=== PATIENT | female | born 1945 | race African-American/Black ===

== ENCOUNTER 2019-06-03 11:39 | Inpatient (IN) | payer MEDICARE, MEDICAID ==
[~2019-06-03] VITALS: Ht 172.7 cm; Wt 105.2 kg
[2019-06-03] MEDS ORDERED: SODIUM CHLORIDE 0.9% 1000ML BAG (SEPSIS BOLUS) IV ONE (21:30)
[2019-06-03] MEDS ORDERED: PIPERACILLIN/TAZ 3.375G PREMIX 50 ML IV ONE (21:30)
[2019-06-03] MEDS ORDERED: VANCOMYCIN 1 G PREMIX 200 ML IV ONE (21:30)
[2019-06-03] MEDS ORDERED: SODIUM CHLORIDE 0.9% IV ONE (22:00)
[2019-06-03] MEDS ORDERED: DILTIAZEM HCL 5MG/ML 5ML VIAL IV ONE (22:00)
[2019-06-03] MEDS ORDERED: CLINDAMYCIN 600 MG in DEXTROSE 5% WATER 50 ML IV ONE (22:30)
[2019-06-03 23:47] LABS: BASOPHILS % 0.4 % (0.0-2.0); EOSINOPHILS % 0.5 % (0.0-5.0); HEMATOCRIT. 31.9 % (36.0-48.0); HEMOGLOBIN. 10.2 g/dL (12.0-16.0); LYMPHOCYTES % 7.1 % (20.0-50.0); MEAN CORPUSCULAR HEMOGLOBIN 26.5 pg (28.0-32.0); MEAN CORPUSCULAR VOLUME 82.9 fL (81.0-99.0); MEAN PLATELET VOLUME 9.2 fl (7.4-10.4); MONOCYTES % 11.3 % (2.0-8.0); NEUTROPHILS % 80.7 % (40.0-76.0); PLATELET 292 x1000/uL (130-400); RED BLOOD CELL COUNT 3.85 mill/uL (4.2-5.4); RED CELL DISTRIBUTION WIDTH 16.4 % (11.6-14.6)
[2019-06-03 23:51] LABS: CHLORIDE 107 mEq/L (98-107)
[2019-06-03 23:52] LABS: INR 1.2; PROTHROMBIN TIME 12.1 sec (9.6-11.0)
[2019-06-04] MEDS ORDERED: HYDROMORPHONE HCL/PF 2MG/ML CPJ IV PRN (00:15)
[2019-06-04] MEDS ORDERED: ACETAMINOPHEN 325MG TABLET PO PRN (00:15)
[2019-06-04] MEDS ORDERED: ENOXAPARIN 40MG/0.4ML SYR SUBCUT SCH (00:15)
[2019-06-04] MEDS ORDERED: HYDROCODONE/ACETAMINOPHEN 5/325MG TABLET PO PRN (00:15)
[2019-06-04] MEDS ORDERED: DOCUSATE SODIUM 100MG CAPSULE PO PRN (00:15)
[2019-06-04] MEDS ORDERED: ONDANSETRON HCL 4MG/2ML INJ IV PRN (00:15)
[2019-06-04] MEDS ORDERED: CLONIDINE 0.1MG TABLET PO PRN (00:15)
[2019-06-04 02:13] VITALS: BP 147/76
[2019-06-04] MEDS ORDERED: IOHEXOL-300 100 ML BOTTLE ONE (03:03)
[2019-06-04] MEDS ORDERED: ATOR10TA PO (03:28)
[2019-06-04] MEDS ORDERED: SITA1TBM7 PO (03:28)
[2019-06-04] MEDS ORDERED: ASPI-1497 PO (03:28)
[2019-06-04] MEDS ORDERED: AMLO5TAB4 PO (03:28)
[2019-06-04] MEDS ORDERED: PIOG15TA66 PO (03:29)
[2019-06-04] MEDS ORDERED: LISI40TA4 PO (03:29)
[2019-06-04] MEDS ORDERED: DICL75TA5 PO (03:29)
[2019-06-04] MEDS: DEXT 5%/0.45% NACL 1000ML 1,000 ML IV SCH ×2 (04:22→15:52)
[2019-06-04] MEDS: PIPERACILLIN/TAZOBACTAM 3.375 G in DEXT 5% WATER 100 ML IV SCH ×3 (05:39→21:27)
[2019-06-04 08:00] VITALS: BP 135/78
[2019-06-04] MEDS: METOPROLOL TARTRATE 25MG TABLET PO SCH ×2 (09:39→21:27)
[2019-06-04] MEDS: ENOXAPARIN 30MG/0.3ML SYR SUBCUT SCH ×2 (09:40→21:27)
[2019-06-04 12:00] VITALS: BP 122/68
[2019-06-04 16:00] VITALS: BP_SYST 122; BP_SYST 124; BP_DIAS 62; BP_DIAS 67
[2019-06-04] MEDS: VANCOMYCIN 1 G PREMIX 200 ML IV SCH (18:46)
[2019-06-04 20:00] VITALS: BP 124/78
[2019-06-05] VITALS: BP_SYST 104; BP_SYST 155; BP_DIAS 108; BP_DIAS 59
[2019-06-05] MEDS ORDERED: VANCOMYCIN 1 G PREMIX 200 ML IV SCH (01:00)
[2019-06-05 04:00] VITALS: BP 129/66
[2019-06-05] MEDS: PIPERACILLIN/TAZOBACTAM 3.375 G in DEXT 5% WATER 100 ML IV SCH ×3 (05:40→22:06)
[2019-06-05] MEDS: DEXT 5%/0.45% NACL 1000ML 1,000 ML IV SCH ×2 (05:40→19:49)
[2019-06-05 07:06] LABS: BASOPHILS % 0.3 % (0.0-2.0); EOSINOPHILS % 0.8 % (0.0-5.0); HEMATOCRIT. 28.4 % (36.0-48.0); HEMOGLOBIN. 9.3 g/dL (12.0-16.0); LYMPHOCYTES % 10.1 % (20.0-50.0); MEAN CORPUSCULAR VOLUME 82.3 fL (81.0-99.0); MEAN PLATELET VOLUME 9.5 fl (7.4-10.4); MONOCYTES % 11.7 % (2.0-8.0); NEUTROPHILS % 77.1 % (40.0-76.0); PLATELET 266 x1000/uL (130-400); RED BLOOD CELL COUNT 3.46 mill/uL (4.2-5.4); RED CELL DISTRIBUTION WIDTH 15.9 % (11.6-14.6)
[2019-06-05 08:00] VITALS: BP 126/60
[2019-06-05 08:01] LABS: CHLORIDE 105 mEq/L (98-107)
[2019-06-05] MEDS: METOPROLOL TARTRATE 25MG TABLET PO SCH ×2 (09:39→21:23)
[2019-06-05] MEDS: ENOXAPARIN 30MG/0.3ML SYR SUBCUT SCH ×2 (09:40→21:23)
[2019-06-05 12:00] VITALS: BP 138/86
[2019-06-05 16:00] VITALS: BP 155/90
[2019-06-05] MEDS: VANCOMYCIN 1 G PREMIX 200 ML IV SCH (19:39)
[2019-06-05 20:00] VITALS: BP 120/70
[2019-06-06 00:19] VITALS: BP 110/60
[2019-06-06 04:00] VITALS: BP 115/64
[2019-06-06] MEDS: PIPERACILLIN/TAZOBACTAM 3.375 G in DEXT 5% WATER 100 ML IV SCH (06:03)
[2019-06-06 06:25] LABS: BASOPHILS % 0.4 % (0.0-2.0); EOSINOPHILS % 1.3 % (0.0-5.0); HEMATOCRIT. 27.9 % (36.0-48.0); HEMOGLOBIN. 9.1 g/dL (12.0-16.0); LYMPHOCYTES % 9.8 % (20.0-50.0); MEAN CORPUSCULAR HEMOGLOBIN 26.8 pg (28.0-32.0); MEAN CORPUSCULAR VOLUME 81.9 fL (81.0-99.0); MEAN PLATELET VOLUME 9.3 fl (7.4-10.4); MONOCYTES % 11.5 % (2.0-8.0); PLATELET 251 x1000/uL (130-400); RED CELL DISTRIBUTION WIDTH 16.3 % (11.6-14.6)
[2019-06-06 06:38] LABS: CHLORIDE 105 mEq/L (98-107)
[2019-06-06 08:00] VITALS: BP 121/67
[2019-06-06] MEDS: ENOXAPARIN 30MG/0.3ML SYR SUBCUT SCH (10:37)
[2019-06-06] MEDS: METOPROLOL TARTRATE 25MG TABLET PO SCH (10:38)
[2019-06-06] MEDS: DEXT 5%/0.45% NACL 1000ML 1,000 ML IV SCH (10:38)
[2019-06-06] MEDS ORDERED: TRAM50TA94 MT (12:10)
[2019-06-06] MEDS ORDERED: SULF1TAB47 MT ×2 (12:10→12:15)
[2019-06-06] MEDS ORDERED: MAGNESIUM 2 G PREMIX 50 ML IV NR (12:30)
[2019-06-06 14:34] VITALS: BP 126/71
== END 2019-06-06 17:25 | disposition home or self-care (01) | DRG 394 ==
LOC: ER 11:39 → 7WST 21:44 → EDBEDREQ 21:51 → EDBEDREQTM 21:51 → EDBEDREQSVC 22:03 → EDBEDREQ 22:03 → EDBEDREQTM 22:03 → ENRESERV 22:55
PROVIDERS: ADMIT Hospitalist; ATTEND Hospitalist
DX: K61.2 Anorectal abscess (principal); E44.0 Moderate protein-calorie malnutrition; E11.9 Type 2 diabetes mellitus without complications; E66.01 Morbid (severe) obesity due to excess calories; I10 Essential (primary) hypertension; I25.10 Atherosclerotic heart disease of native coronary artery without angina pectoris; Z85.038 Personal history of other malignant neoplasm of large intestine; Z90.710 Acquired absence of both cervix and uterus; Z79.899 Other long term (current) drug therapy; Z88.8 Allergy status to other drugs, medicaments and biological substances
CPT/HCPCS: 36415; 71045; 74177; 80053; 82962; 83605; 83735; 83880; 84145; 84484; 85025; 85651; 86140; 87070; 93005; 93970; 96365; 97116; 97162; 99285; C1893; J1650; J2543; J3370; J3475; J3490; J7030; J7060; Q9967

== ENCOUNTER 2019-09-05 13:55 | Inpatient (IN) | payer MEDICARE, MEDICAID ==
[~2019-09-05] VITALS: Ht 165.1 cm; Wt 100.8 kg
[~2019-09-05 13:55] MED LIST: AMLO5TAB4 PO; ASPI-1497 PO; ATOR10TA PO; DICL75TA5 PO; LISI40TA4 PO; PIOG15TA66 PO; SITA1TBM7 PO; SULF1TAB47 MT; TRAM50TA94 MT
[2019-09-05] MEDS ORDERED: SODIUM CHLORIDE 0.9% 1000ML BAG (SEPSIS BOLUS) IV ONE (14:15)
[2019-09-05 15:40] LABS: HEMATOCRIT. 26.4 % (36.0-48.0); HEMOGLOBIN. 7.9 g/dL (12.0-16.0); MEAN CORPUSCULAR HEMOGLOBIN 24.5 pg (28.0-32.0); MEAN CORPUSCULAR VOLUME 81.5 fL (81.0-99.0); MEAN PLATELET VOLUME 9.2 fl (7.4-10.4); PLATELET 298 x1000/uL (130-400); RED BLOOD CELL COUNT 3.24 mill/uL (4.2-5.4); RED CELL DISTRIBUTION WIDTH 19.8 % (11.6-14.6)
[2019-09-05] MEDS ORDERED: ASPIRIN 300MG SUPP PR ONE (15:45)
[2019-09-05 15:50] LABS: INR 1.2; PARTIAL THROMBOPLASTIN TIME 25.9 sec (23.4-31.0); PROTHROMBIN TIME 13.4 sec (9.6-11.0)
[2019-09-05 15:52] LABS: CHLORIDE 114 mEq/L (98-107)
[2019-09-05 15:59] LABS: PLATELET ESTIMATE NORMAL
[2019-09-05] MEDS ORDERED: PIPERACILLIN/TAZ 3.375G PREMIX 50 ML IV ONE (16:15)
[2019-09-05] MEDS ORDERED: VANCOMYCIN 1 G PREMIX 200 ML IV ONE (16:15)
[2019-09-05] MEDS ORDERED: DEXTROSE 50% WATER 50ML SYRINGE IV ONE (16:15)
[2019-09-05] MEDS ORDERED: IOHEXOL-350 100 ML BOTTLE ONE (16:56)
[2019-09-05] MEDS ORDERED: DILTIAZEM HCL 5MG/ML 5ML VIAL IV ONE (17:45)
[2019-09-05] MEDS ORDERED: DEXTROSE 5% WATER 1,000 ML IV ONE (17:56)
[2019-09-05 19:19] LABS: CLARITY URINE TURBID (CLEAR); COLOR URINE DARK YELLOW (YELLOW); KETONES URINE NEGATIVE (NEGATIVE); LEUKOCYTE ESTERASE URINE 3+ (NEGATIVE); NITRITE URINE NEGATIVE (NEGATIVE); OCCULT BLOOD URINE 1+ (NEGATIVE); PROTEIN URINE 3+ (NEGATIVE); SPECIFIC GRAVITY URINE 1.016 (1.005-1.030)
[2019-09-05 22:11] VITALS: BP 93/60
[2019-09-06] VITALS: BP_SYST 93; BP_SYST 96; BP_DIAS 60; BP_DIAS 62
[2019-09-06 04:00] VITALS: BP_SYST 121; BP_SYST 89; BP_DIAS 49; BP_DIAS 58
[2019-09-06] MEDS ORDERED: DEXTROSE 50% WATER 50ML SYRINGE IV PRN (05:30)
[2019-09-06] MEDS ORDERED: ACETAMINOPHEN 650MG SUPP PR PRN (05:30)
[2019-09-06] MEDS: BLOOD SUGAR DIAGNOSTIC STRIP TEST SCH ×4 (07:17→21:21)
[2019-09-06] MEDS: INSULIN LISPRO 100 UNITS/ML SUBCUT SCH ×4 (07:23→21:00)
[2019-09-06 08:00] VITALS: BP 70/47
[2019-09-06] MEDS ORDERED: ZINC50TA69 PO (08:34)
[2019-09-06] MEDS ORDERED: ASCO500C18 MT (08:35)
[2019-09-06] MEDS ORDERED: LIDO700A30 TP (08:35)
[2019-09-06] MEDS ORDERED: ONDA4TAB5 MT (08:35)
[2019-09-06] MEDS ORDERED: ATOR20TA65 MT (08:35)
[2019-09-06] MEDS: PIPERACILLIN/TAZOBACTAM 3.375 G in DEXT 5% WATER 100 ML IV SCH ×3 (09:51→21:21)
[2019-09-06] MEDS: SODIUM CHLORIDE 0.45% 1,000 ML IV SCH (09:52)
[2019-09-06] MEDS ORDERED: VANCOMYCIN 1 G PREMIX 200 ML IV SCH (10:00)
[2019-09-06 11:59] LABS: HEMATOCRIT. 23.6 % (36.0-48.0); HEMOGLOBIN. 7.1 g/dL (12.0-16.0); MEAN CORPUSCULAR HEMOGLOBIN 24.2 pg (28.0-32.0); MEAN PLATELET VOLUME 9.2 fl (7.4-10.4); PLATELET 221 x1000/uL (130-400); RED BLOOD CELL COUNT 2.92 mill/uL (4.2-5.4); RED CELL DISTRIBUTION WIDTH 20.2 % (11.6-14.6)
[2019-09-06 12:00] VITALS: BP 107/78
[2019-09-06 12:05] LABS: CHLORIDE 110 mEq/L (98-107)
[2019-09-06] MEDS: MIDODRINE HCL 5MG TABLET PO SCH ×2 (13:30→17:00)
[2019-09-06] MEDS ORDERED: PIPERACILLIN/TAZOBACTAM 3.375 G/VIAL IV SCH (14:00)
[2019-09-06] MEDS ORDERED: SODIUM POLYSTYRENE SULFONATE 15 G/60 ML BOT PO SCH (14:00)
[2019-09-06 14:17] LABS: PLATELET ESTIMATE NORMAL
[2019-09-06] MEDS: ZINC SULFATE 220 MG ( 50 ) CAPSULE PO SCH (14:30)
[2019-09-06] MEDS: ASCORBIC ACID 500 MG TABLET PO SCH (14:30)
[2019-09-06 16:00] VITALS: BP 106/56
[2019-09-06] MEDS ORDERED: LORAZEPAM 2MG/ML CPJ IV PRN (17:00)
[2019-09-06 20:00] VITALS: BP 102/74
[2019-09-07 00:07] VITALS: BP 113/72
[2019-09-07 04:00] VITALS: BP 159/102
[2019-09-07] MEDS: SODIUM CHLORIDE 0.45% 1,000 ML IV SCH (05:00)
[2019-09-07] MEDS: PIPERACILLIN/TAZOBACTAM 3.375 G in DEXT 5% WATER 100 ML IV SCH ×3 (05:30→14:43)
[2019-09-07] MEDS ORDERED: VANCOMYCIN 1 G PREMIX 200 ML IV SCH (06:00)
[2019-09-07] MEDS: BLOOD SUGAR DIAGNOSTIC STRIP TEST SCH ×3 (07:00→17:40)
[2019-09-07 08:00] VITALS: BP 118/67
[2019-09-07] MEDS: ZINC SULFATE 220 MG ( 50 ) CAPSULE PO SCH (10:19)
[2019-09-07] MEDS: ASCORBIC ACID 500 MG TABLET PO SCH (10:19)
[2019-09-07] MEDS: RISPERIDONE 0.5MG TABLET PO SCH (10:19)
[2019-09-07] MEDS: MIDODRINE HCL 5MG TABLET PO SCH ×3 (10:20→18:35)
[2019-09-07] MEDS: INSULIN LISPRO 100 UNITS/ML SUBCUT SCH ×4 (10:22→21:55)
[2019-09-07 12:00] VITALS: BP 118/69
[2019-09-07 16:00] VITALS: BP 116/72
[2019-09-07 17:12] LABS: CHLORIDE 111 mEq/L (98-107)
[2019-09-07] MEDS: LEVOFLOXACIN 500MG PREMIX 100 ML IV SCH (18:34)
[2019-09-07 20:00] VITALS: BP 122/67
[2019-09-08] VITALS (7 sets, daily range): BP systolic 99–134; BP diastolic 28–98
[2019-09-08] MEDS: BLOOD SUGAR DIAGNOSTIC STRIP TEST SCH ×5 (01:03→21:00)
[2019-09-08] MEDS: SODIUM CHLORIDE 0.45% 1,000 ML IV SCH ×2 (01:06→21:46)
[2019-09-08] MEDS: ZINC SULFATE 220 MG ( 50 ) CAPSULE PO SCH (09:27)
[2019-09-08] MEDS: MIDODRINE HCL 5MG TABLET PO SCH ×2 (09:27→21:49)
[2019-09-08] MEDS: RISPERIDONE 0.5MG TABLET PO SCH (09:27)
[2019-09-08] MEDS: ASCORBIC ACID 500 MG TABLET PO SCH (09:27)
[2019-09-08] MEDS: INSULIN LISPRO 100 UNITS/ML SUBCUT SCH ×3 (09:30→21:47)
[2019-09-08] MEDS ORDERED: LORAZEPAM 2MG/ML CPJ IV SCH (10:00)
[2019-09-08 12:36] LABS: HEMATOCRIT. 22.3 % (36.0-48.0); MEAN CORPUSCULAR HEMOGLOBIN 24.7 pg (28.0-32.0); MEAN CORPUSCULAR VOLUME 79.2 fL (81.0-99.0); MEAN PLATELET VOLUME 9.2 fl (7.4-10.4); PLATELET 195 x1000/uL (130-400); RED BLOOD CELL COUNT 2.82 mill/uL (4.2-5.4); RED CELL DISTRIBUTION WIDTH 19.7 % (11.6-14.6)
[2019-09-08] MEDS ORDERED: POTASSIUM CHLORIDE 20MEQ TABLET SR PO SCH (12:45)
[2019-09-08 12:50] LABS: CHLORIDE 113 mEq/L (98-107)
[2019-09-08 13:33] LABS: PLATELET ESTIMATE NORMAL
[2019-09-08] MEDS ORDERED: POTASSIUM CHLORIDE 20MEQ/PACKET NG NR (20:15)
[2019-09-08] MEDS: MORPHINE SULFATE 2 MG/ML CPJ (NOT FOR IM USE) IV PRN (20:38)
[2019-09-08] MEDS: DIGOXIN 125MCG TABLET PO SCH (21:45)
[2019-09-08] MEDS: LEVOFLOXACIN 500MG PREMIX 100 ML IV SCH (21:45)
[2019-09-08] MEDS: INSULIN GLARGINE UD 100 UNITS/ML SYR SUBCUT SCH (21:47)
[2019-09-08] MEDS: LORAZEPAM 2MG/ML CPJ IV PRN (22:07)
[2019-09-09] VITALS (17 sets, daily range): BP systolic 112–155; BP diastolic 53–98
[2019-09-09] MEDS: BLOOD SUGAR DIAGNOSTIC STRIP TEST SCH ×4 (05:58→20:26)
[2019-09-09] MEDS: INSULIN LISPRO 100 UNITS/ML SUBCUT SCH ×4 (07:20→21:04)
[2019-09-09] MEDS: ASCORBIC ACID 500 MG TABLET PO SCH (08:49)
[2019-09-09] MEDS: MIDODRINE HCL 5MG TABLET PO SCH (08:49)
[2019-09-09] MEDS: ZINC SULFATE 220 MG ( 50 ) CAPSULE PO SCH (08:49)
[2019-09-09] MEDS: RISPERIDONE 0.5MG TABLET PO SCH (08:49)
[2019-09-09] MEDS: INSULIN GLARGINE UD 100 UNITS/ML SYR SUBCUT SCH ×2 (10:33→22:14)
[2019-09-09] MEDS ORDERED: LIDOCAINE HCL 1% 20ML VIAL (Pyxis) INJ ONE (12:27)
[2019-09-09] MEDS ORDERED: SODIUM BICARBONATE 4% (2.4MEQ) 5ML VIAL IV ONE (12:27)
[2019-09-09 15:09] LABS: BASOPHILS % 0.4 % (0.0-2.0); EOSINOPHILS % 0.2 % (0.0-5.0); HEMATOCRIT. 24.5 % (36.0-48.0); HEMOGLOBIN. 7.8 g/dL (12.0-16.0); LYMPHOCYTES % 8.7 % (20.0-50.0); MEAN CORPUSCULAR HEMOGLOBIN 25.5 pg (28.0-32.0); MEAN CORPUSCULAR VOLUME 79.6 fL (81.0-99.0); MEAN PLATELET VOLUME 9.1 fl (7.4-10.4); MONOCYTES % 5.6 % (2.0-8.0); NEUTROPHILS % 85.1 % (40.0-76.0); PLATELET 181 x1000/uL (130-400); RED BLOOD CELL COUNT 3.07 mill/uL (4.2-5.4); RED CELL DISTRIBUTION WIDTH 19.2 % (11.6-14.6)
[2019-09-09 15:14] LABS: CHLORIDE 115 mEq/L (98-107)
[2019-09-09 15:17] LABS: INR 1.2; PROTHROMBIN TIME 12.8 sec (9.6-11.0)
[2019-09-09 15:21] LABS: TOTAL IRON BINDING CAPACITY 113 ug/dL (250-450)
[2019-09-09 15:42] LABS: FOLIC ACID (FOLATE) SERUM 3.4 ng/mL (>5.38)
[2019-09-09] MEDS ORDERED: POTASSIUM CHLORIDE 20MEQ/PACKET NG NR (16:15)
[2019-09-09] MEDS: DIGOXIN 125MCG TABLET PO SCH (17:17)
[2019-09-09] MEDS: LEVOFLOXACIN 500MG PREMIX 100 ML IV SCH (17:17)
[2019-09-09] MEDS: SODIUM CHLORIDE 0.45% 1,000 ML IV SCH (17:17)
[2019-09-09] MEDS: MORPHINE SULFATE 2 MG/ML CPJ (NOT FOR IM USE) IV PRN (21:07)
[2019-09-10] VITALS (16 sets, daily range): BP systolic 114–150; BP diastolic 52–96
[2019-09-10] MEDS: MORPHINE SULFATE 2 MG/ML CPJ (NOT FOR IM USE) IV PRN ×2 (02:00→14:13)
[2019-09-10] MEDS: BLOOD SUGAR DIAGNOSTIC STRIP TEST SCH ×4 (07:14→21:48)
[2019-09-10] MEDS: INSULIN LISPRO 100 UNITS/ML SUBCUT SCH ×4 (07:20→21:52)
[2019-09-10 07:24] LABS: CHLORIDE 116 mEq/L (98-107)
[2019-09-10] MEDS: RISPERIDONE 0.5MG TABLET PO SCH ×2 (08:59→17:40)
[2019-09-10] MEDS: METOPROLOL TARTRATE 25MG TABLET NG SCH ×2 (09:00→21:55)
[2019-09-10] MEDS: SODIUM HYPOCHLORITE 0.125% 473ML SOLUTION TOP SCH (09:00)
[2019-09-10] MEDS: INSULIN GLARGINE UD 100 UNITS/ML SYR SUBCUT SCH ×2 (09:08→22:00)
[2019-09-10] MEDS ORDERED: DIGOXIN 500MCG/2ML AMP IV NR (10:30)
[2019-09-10] MEDS: SODIUM CHL 0.45% + KCL 20MEQ/L 1,000 ML IV SCH (14:12)
[2019-09-10 15:41] LABS: EOSINOPHILS % 0.3 % (0.0-5.0); HEMATOCRIT. 25.5 % (36.0-48.0); HEMOGLOBIN. 8.1 g/dL (12.0-16.0); LYMPHOCYTES % 7.8 % (20.0-50.0); MEAN CORPUSCULAR HEMOGLOBIN 25.7 pg (28.0-32.0); MEAN PLATELET VOLUME 9.2 fl (7.4-10.4); MONOCYTES % 4.9 % (2.0-8.0); PLATELET 191 x1000/uL (130-400); RED BLOOD CELL COUNT 3.15 mill/uL (4.2-5.4); RED CELL DISTRIBUTION WIDTH 19.4 % (11.6-14.6)
[2019-09-10] MEDS: LORAZEPAM 2MG/ML CPJ IV PRN (15:44)
[2019-09-10] MEDS ORDERED: DIGOXIN 500MCG/2ML AMP IV SCH (16:30)
[2019-09-10] MEDS: DIGOXIN 125MCG TABLET PO SCH (17:44)
[2019-09-10] MEDS: LEVOFLOXACIN 500MG PREMIX 100 ML IV SCH (20:26)
[2019-09-11] VITALS (11 sets, daily range): BP systolic 105–153; BP diastolic 48–108
[2019-09-11] MEDS ORDERED: LACTULOSE 20G/30ML UDC PR SCH (02:00)
[2019-09-11] MEDS: SODIUM CHL 0.45% + KCL 20MEQ/L 1,000 ML IV SCH ×3 (02:36→20:55)
[2019-09-11 05:50] LABS: CHLORIDE 116 mEq/L (98-107)
[2019-09-11] MEDS: BLOOD SUGAR DIAGNOSTIC STRIP TEST SCH ×4 (06:50→20:52)
[2019-09-11] MEDS ORDERED: BACITRACIN 50,000 UNITS/VIAL ONE (06:53)
[2019-09-11] MEDS ORDERED: BUPIVACAINE HCL/PF 0.5% (5MG/ML) 10ML ONE (06:53)
[2019-09-11] MEDS ORDERED: LIDOCAINE HCL 1% 20ML VIAL (Pyxis) INJ ONE (06:53)
[2019-09-11] MEDS ORDERED: NORMAL SALINE 0.9% 10 ML SYR ONE (06:54)
[2019-09-11] MEDS: INSULIN LISPRO 100 UNITS/ML SUBCUT SCH ×4 (07:20→20:52)
[2019-09-11] MEDS ORDERED: FENTANYL CITRATE/PF 50MCG/ML 2ML VIAL ONE (07:33)
[2019-09-11] MEDS ORDERED: ROCURONIUM BROMIDE 10MG/ML VIAL 5ML IV ONE (07:33)
[2019-09-11] MEDS ORDERED: MIDAZOLAM HCL 2 MG/2 ML VIAL ONE (07:34)
[2019-09-11] MEDS ORDERED: PROPOFOL 200MG/20ML VIAL IV ONE (07:34)
[2019-09-11] MEDS ORDERED: NEOSTIGMINE METHYLSULFATE 1MG/ML 10 ML VIAL ONE (07:34)
[2019-09-11] MEDS ORDERED: GLYCOPYRROLATE 0.2 MG/ML 2ML VIAL ONE (07:34)
[2019-09-11] MEDS ORDERED: DEXAMETHASONE 4MG/ML 1ML VIAL ONE (07:38)
[2019-09-11] MEDS ORDERED: ONDANSETRON HCL 4MG/2ML INJ ONE (07:38)
[2019-09-11] MEDS ORDERED: HYDROMORPHONE HCL/PF 2MG/ML CPJ IV PRN (08:30)
[2019-09-11] MEDS ORDERED: LABETALOL 5MG/ML SYR 20 MG/4 ML SYRINGE IV PRN (08:30)
[2019-09-11] MEDS ORDERED: ONDANSETRON HCL 4MG/2ML INJ IV PRN (08:30)
[2019-09-11] MEDS ORDERED: MEPERIDINE HCL/PF 25MG/ML CPJ IV PRN (08:30)
[2019-09-11] MEDS: SODIUM HYPOCHLORITE 0.125% 473ML SOLUTION TOP SCH (09:00)
[2019-09-11] MEDS: RISPERIDONE 0.5MG TABLET PO SCH ×2 (11:06→17:21)
[2019-09-11] MEDS: MORPHINE SULFATE 2 MG/ML CPJ (NOT FOR IM USE) IV PRN ×2 (11:06→16:40)
[2019-09-11] MEDS: INSULIN GLARGINE UD 100 UNITS/ML SYR SUBCUT SCH ×2 (11:25→20:57)
[2019-09-11] MEDS: LORAZEPAM 2MG/ML CPJ IV PRN ×2 (12:28→12:34)
[2019-09-11] MEDS: METOPROLOL TARTRATE 25MG TABLET NG SCH ×2 (12:29→12:33)
[2019-09-11 12:46] LABS: BASOPHILS % 0.3 % (0.0-2.0); EOSINOPHILS % 0.4 % (0.0-5.0); HEMATOCRIT. 31.4 % (36.0-48.0); HEMOGLOBIN. 9.9 g/dL (12.0-16.0); LYMPHOCYTES % 8.6 % (20.0-50.0); MEAN CORPUSCULAR VOLUME 82.3 fL (81.0-99.0); MONOCYTES % 4.6 % (2.0-8.0); NEUTROPHILS % 86.1 % (40.0-76.0); RED BLOOD CELL COUNT 3.81 mill/uL (4.2-5.4); RED CELL DISTRIBUTION WIDTH 18.6 % (11.6-14.6)
[2019-09-11 13:19] LABS: MEAN PLATELET VOLUME 9.6 fl (7.4-10.4)
[2019-09-11 13:20] LABS: PLATELET 151 x1000/uL (130-400)
[2019-09-11] MEDS: DIGOXIN 125MCG TABLET PO SCH (17:21)
[2019-09-11] MEDS: LEVOFLOXACIN 500MG PREMIX 100 ML IV SCH (17:29)
[2019-09-12] VITALS (12 sets, daily range): BP systolic 92–125; BP diastolic 37–70
[2019-09-12] MEDS: MORPHINE SULFATE 2 MG/ML CPJ (NOT FOR IM USE) IV PRN ×3 (05:22→17:56)
[2019-09-12] MEDS: BLOOD SUGAR DIAGNOSTIC STRIP TEST SCH ×4 (05:42→20:53)
[2019-09-12] MEDS: SODIUM CHL 0.45% + KCL 20MEQ/L 1,000 ML IV SCH ×2 (05:42→16:00)
[2019-09-12] MEDS: INSULIN LISPRO 100 UNITS/ML SUBCUT SCH ×4 (05:42→21:09)
[2019-09-12 07:23] LABS: HEMATOCRIT. 28.1 % (36.0-48.0); HEMOGLOBIN. 9.1 g/dL (12.0-16.0); MEAN CORPUSCULAR HEMOGLOBIN 26.2 pg (28.0-32.0); MEAN CORPUSCULAR VOLUME 81.2 fL (81.0-99.0); MEAN PLATELET VOLUME 9.6 fl (7.4-10.4); PLATELET 147 x1000/uL (130-400); RED BLOOD CELL COUNT 3.46 mill/uL (4.2-5.4); RED CELL DISTRIBUTION WIDTH 19.1 % (11.6-14.6)
[2019-09-12 07:32] LABS: CHLORIDE 109 mEq/L (98-107)
[2019-09-12] MEDS: METOPROLOL TARTRATE 25MG TABLET NG SCH ×2 (08:58→21:00)
[2019-09-12] MEDS: RISPERIDONE 0.5MG TABLET PO SCH ×2 (08:58→17:08)
[2019-09-12] MEDS: SODIUM HYPOCHLORITE 0.125% 473ML SOLUTION TOP SCH (08:59)
[2019-09-12] MEDS: INSULIN GLARGINE UD 100 UNITS/ML SYR SUBCUT SCH ×2 (09:08→21:52)
[2019-09-12] MEDS: ACETAMINOPHEN 325MG TABLET PO PRN (09:08)
[2019-09-12] MEDS ORDERED: NYSTATIN 100,000 UNITS/ML 5ML UDC SSW SCH (12:00)
[2019-09-12] MEDS: ENOXAPARIN 80MG/0.8ML SYR SUBCUT SCH (14:23)
[2019-09-12] MEDS: NYSTATIN POWDER 15GM TOP SCH ×2 (14:26→17:08)
[2019-09-12] MEDS: LINEZOLID 600 MG PREMIX 300 ML IV SCH (14:28)
[2019-09-12] MEDS: DIGOXIN 125MCG TABLET PO SCH (17:09)
[2019-09-12] MEDS: LEVOFLOXACIN 500MG PREMIX 100 ML IV SCH (17:14)
[2019-09-12 18:21] LABS: NUCLEATED RED BLOOD CELLS 6 /100 WBC; PLATELET ESTIMATE NORMAL
[2019-09-13] VITALS (12 sets, daily range): BP systolic 99–137; BP diastolic 38–90
[2019-09-13] MEDS: ENOXAPARIN 80MG/0.8ML SYR SUBCUT SCH ×2 (01:09→12:36)
[2019-09-13] MEDS: LINEZOLID 600 MG PREMIX 300 ML IV SCH ×2 (01:09→12:45)
[2019-09-13] MEDS: SODIUM CHL 0.45% + KCL 20MEQ/L 1,000 ML IV SCH ×3 (01:09→22:00)
[2019-09-13] MEDS: INSULIN LISPRO 100 UNITS/ML SUBCUT SCH ×4 (05:32→20:36)
[2019-09-13] MEDS: BLOOD SUGAR DIAGNOSTIC STRIP TEST SCH ×4 (05:32→20:36)
[2019-09-13 06:14] LABS: CHLORIDE 109 mEq/L (98-107)
[2019-09-13 06:40] LABS: BASOPHILS % 0.2 % (0.0-2.0); EOSINOPHILS % 0.6 % (0.0-5.0); HEMATOCRIT. 29.6 % (36.0-48.0); HEMOGLOBIN. 9.6 g/dL (12.0-16.0); LYMPHOCYTES % 8.9 % (20.0-50.0); MEAN CORPUSCULAR HEMOGLOBIN 26.4 pg (28.0-32.0); MEAN CORPUSCULAR VOLUME 81.1 fL (81.0-99.0); MEAN PLATELET VOLUME 9.7 fl (7.4-10.4); MONOCYTES % 5.8 % (2.0-8.0); NEUTROPHILS % 84.5 % (40.0-76.0); PLATELET 171 x1000/uL (130-400); RED BLOOD CELL COUNT 3.65 mill/uL (4.2-5.4); RED CELL DISTRIBUTION WIDTH 19.8 % (11.6-14.6)
[2019-09-13] MEDS: SODIUM HYPOCHLORITE 0.125% 473ML SOLUTION TOP SCH (09:12)
[2019-09-13] MEDS: RISPERIDONE 0.5MG TABLET PO SCH ×2 (09:12→17:21)
[2019-09-13] MEDS: NYSTATIN POWDER 15GM TOP SCH ×3 (09:12→17:22)
[2019-09-13] MEDS: METOPROLOL TARTRATE 25MG TABLET NG SCH ×3 (09:13→23:25)
[2019-09-13] MEDS: INSULIN GLARGINE UD 100 UNITS/ML SYR SUBCUT SCH ×2 (10:56→22:39)
[2019-09-13] MEDS: MORPHINE SULFATE 2 MG/ML CPJ (NOT FOR IM USE) IV PRN (12:38)
[2019-09-13] MEDS: DIGOXIN 125MCG TABLET PO SCH (17:21)
[2019-09-13] MEDS: LEVOFLOXACIN 500MG PREMIX 100 ML IV SCH (17:25)
[2019-09-13] MEDS: ENOXAPARIN 100MG/ML SYR SUBCUT SCH (22:19)
[2019-09-14] VITALS (12 sets, daily range): BP systolic 98–152; BP diastolic 42–81
[2019-09-14] MEDS: LINEZOLID 600 MG PREMIX 300 ML IV SCH ×2 (02:13→14:46)
[2019-09-14] MEDS: INSULIN LISPRO 100 UNITS/ML SUBCUT SCH ×4 (06:15→21:00)
[2019-09-14] MEDS: BLOOD SUGAR DIAGNOSTIC STRIP TEST SCH ×4 (06:15→21:18)
[2019-09-14 06:42] LABS: BASOPHILS % 0.1 % (0.0-2.0); EOSINOPHILS % 0.5 % (0.0-5.0); HEMATOCRIT. 28.5 % (36.0-48.0); HEMOGLOBIN. 9.3 g/dL (12.0-16.0); LYMPHOCYTES % 9.2 % (20.0-50.0); MEAN CORPUSCULAR HEMOGLOBIN 26.3 pg (28.0-32.0); MEAN CORPUSCULAR VOLUME 80.6 fL (81.0-99.0); MONOCYTES % 6.5 % (2.0-8.0); NEUTROPHILS % 83.7 % (40.0-76.0); PLATELET 179 x1000/uL (130-400); RED BLOOD CELL COUNT 3.54 mill/uL (4.2-5.4); RED CELL DISTRIBUTION WIDTH 20.5 % (11.6-14.6)
[2019-09-14 06:57] LABS: CHLORIDE 107 mEq/L (98-107)
[2019-09-14] MEDS: ZINC SULFATE 220 MG ( 50 ) CAPSULE NG SCH (08:55)
[2019-09-14] MEDS: RISPERIDONE 0.5MG TABLET PO SCH ×2 (08:55→21:34)
[2019-09-14] MEDS: NYSTATIN POWDER 15GM TOP SCH ×3 (09:00→17:38)
[2019-09-14] MEDS: SODIUM HYPOCHLORITE 0.125% 473ML SOLUTION TOP SCH (09:00)
[2019-09-14] MEDS: ASCORBIC ACID 500 MG TABLET NG SCH (09:00)
[2019-09-14] MEDS: METOPROLOL TARTRATE 25MG TABLET NG SCH ×2 (09:00→21:34)
[2019-09-14] MEDS: INSULIN GLARGINE UD 100 UNITS/ML SYR SUBCUT SCH ×2 (10:56→21:41)
[2019-09-14] MEDS: ENOXAPARIN 100MG/ML SYR SUBCUT SCH ×2 (10:58→23:02)
[2019-09-14] MEDS: SODIUM CHL 0.45% + KCL 20MEQ/L 1,000 ML IV SCH ×2 (12:18→18:00)
[2019-09-14] MEDS: METRONIDAZOLE 500 MG PREMIX 100 ML IV SCH ×2 (17:37→21:40)
[2019-09-14] MEDS: DIGOXIN 125MCG TABLET PO SCH (18:27)
[2019-09-14] MEDS: ACETAMINOPHEN 325MG TABLET PO PRN (18:33)
[2019-09-14] MEDS: FLUCONAZOLE 200 MG/100ML BAG 100 ML IV SCH (19:16)
[2019-09-14] MEDS: LEVOFLOXACIN 500MG PREMIX 100 ML IV SCH (21:36)
[2019-09-15] VITALS (12 sets, daily range): BP systolic 89–135; BP diastolic 33–96
[2019-09-15] MEDS: LINEZOLID 600 MG PREMIX 300 ML IV SCH ×2 (01:09→14:25)
[2019-09-15] MEDS: SODIUM CHL 0.45% + KCL 20MEQ/L 1,000 ML IV SCH ×2 (03:20→14:24)
[2019-09-15] MEDS: METRONIDAZOLE 500 MG PREMIX 100 ML IV SCH ×2 (05:05→13:05)
[2019-09-15] MEDS: BLOOD SUGAR DIAGNOSTIC STRIP TEST SCH ×4 (06:16→20:40)
[2019-09-15] MEDS: INSULIN LISPRO 100 UNITS/ML SUBCUT SCH ×4 (06:16→20:47)
[2019-09-15] MEDS: ZINC SULFATE 220 MG ( 50 ) CAPSULE NG SCH (08:56)
[2019-09-15] MEDS: METOPROLOL TARTRATE 25MG TABLET NG SCH ×2 (08:57→20:40)
[2019-09-15] MEDS: ASCORBIC ACID 500 MG TABLET NG SCH (08:57)
[2019-09-15] MEDS: RISPERIDONE 0.5MG TABLET PO SCH ×2 (08:57→20:39)
[2019-09-15] MEDS: SODIUM HYPOCHLORITE 0.125% 473ML SOLUTION TOP SCH (08:58)
[2019-09-15] MEDS: INSULIN GLARGINE UD 100 UNITS/ML SYR SUBCUT SCH ×2 (09:03→21:46)
[2019-09-15] MEDS: NYSTATIN POWDER 15GM TOP SCH ×3 (09:22→18:43)
[2019-09-15] MEDS: ENOXAPARIN 100MG/ML SYR SUBCUT SCH ×2 (11:25→22:01)
[2019-09-15] MEDS: FLUCONAZOLE 200 MG/100ML BAG 100 ML IV SCH (18:43)
[2019-09-15] MEDS: DIGOXIN 125MCG TABLET PO SCH (18:43)
[2019-09-15] MEDS: MEROPENEM 1,000 MG in SODIUM CHLORIDE 0.9% 100 ML IV SCH (19:55)
[2019-09-16] VITALS (12 sets, daily range): BP systolic 93–133; BP diastolic 25–76
[2019-09-16] MEDS: SODIUM CHL 0.45% + KCL 20MEQ/L 1,000 ML IV SCH ×2 (00:35→07:18)
[2019-09-16] MEDS: LINEZOLID 600 MG PREMIX 300 ML IV SCH ×2 (01:53→15:00)
[2019-09-16] MEDS: BLOOD SUGAR DIAGNOSTIC STRIP TEST SCH ×4 (05:53→21:00)
[2019-09-16] MEDS: INSULIN LISPRO 100 UNITS/ML SUBCUT SCH ×4 (05:53→21:56)
[2019-09-16] MEDS: MEROPENEM 1,000 MG in SODIUM CHLORIDE 0.9% 100 ML IV SCH ×2 (07:51→20:08)
[2019-09-16] MEDS: NYSTATIN POWDER 15GM TOP SCH ×3 (09:00→17:26)
[2019-09-16] MEDS: ASCORBIC ACID 500 MG TABLET NG SCH (09:00)
[2019-09-16] MEDS: SODIUM HYPOCHLORITE 0.125% 473ML SOLUTION TOP SCH (09:00)
[2019-09-16] MEDS: METOPROLOL TARTRATE 25MG TABLET NG SCH ×2 (09:00→21:55)
[2019-09-16] MEDS: ZINC SULFATE 220 MG ( 50 ) CAPSULE NG SCH (09:00)
[2019-09-16] MEDS: RISPERIDONE 0.5MG TABLET PO SCH ×2 (09:00→21:55)
[2019-09-16] MEDS: ENOXAPARIN 100MG/ML SYR SUBCUT SCH ×2 (11:00→23:00)
[2019-09-16] MEDS ORDERED: LORAZEPAM 2MG/ML CPJ IV PRN (12:15)
[2019-09-16] MEDS ORDERED: LORAZEPAM 2MG/ML CPJ IV NR (12:15)
[2019-09-16] MEDS ORDERED: LORAZEPAM 2MG/ML CPJ IV ONE (12:15)
[2019-09-16 14:31] LABS: HEMOGLOBIN. 9.3 g/dL (12.0-16.0); MEAN CORPUSCULAR VOLUME 81.3 fL (81.0-99.0); MEAN PLATELET VOLUME 9.1 fl (7.4-10.4); PLATELET 173 x1000/uL (130-400); RED BLOOD CELL COUNT 3.57 mill/uL (4.2-5.4); RED CELL DISTRIBUTION WIDTH 20.6 % (11.6-14.6)
[2019-09-16 14:38] LABS: CHLORIDE 107 mEq/L (98-107)
[2019-09-16] MEDS: DEXT 5%/0.45% NACL KCL 20MEQ/L 1,000 ML IV SCH (15:07)
[2019-09-16 16:03] LABS: PLATELET ESTIMATE NORMAL
[2019-09-16] MEDS: FLUCONAZOLE 200 MG/100ML BAG 100 ML IV SCH (17:24)
[2019-09-16] MEDS: DIGOXIN 125MCG TABLET PO SCH (17:24)
[2019-09-16] MEDS ORDERED: LEVETIRACETAM 500 MG in SODIUM CHLORIDE 0.9% 100 ML IV SCH (21:00)
[2019-09-16] MEDS: LEVETIRACETAM 500MG PREMIX 100 ML IV SCH (21:55)
[2019-09-17] VITALS (12 sets, daily range): BP systolic 92–137; BP diastolic 43–68
[2019-09-17] MEDS: DEXT 5%/0.45% NACL KCL 20MEQ/L 1,000 ML IV SCH ×3 (00:25→20:26)
[2019-09-17] MEDS: LINEZOLID 600 MG PREMIX 300 ML IV SCH ×2 (02:44→14:26)
[2019-09-17] MEDS: BLOOD SUGAR DIAGNOSTIC STRIP TEST SCH ×4 (06:39→21:00)
[2019-09-17] MEDS: INSULIN LISPRO 100 UNITS/ML SUBCUT SCH ×4 (06:39→21:00)
[2019-09-17] MEDS: MEROPENEM 1,000 MG in SODIUM CHLORIDE 0.9% 100 ML IV SCH ×2 (07:13→20:26)
[2019-09-17] MEDS: METOPROLOL TARTRATE 25MG TABLET NG SCH ×2 (09:00→21:00)
[2019-09-17] MEDS: LEVETIRACETAM 500MG PREMIX 100 ML IV SCH ×2 (09:25→21:56)
[2019-09-17] MEDS ORDERED: MIDAZOLAM HCL 5 MG/5 ML VIAL ONE (10:16)
[2019-09-17] MEDS ORDERED: MIDAZOLAM HCL 5 MG/5 ML VIAL IV PRN (10:16)
[2019-09-17] MEDS ORDERED: FENTANYL CITRATE/PF 50MCG/ML 2ML VIAL ONE (10:16)
[2019-09-17] MEDS ORDERED: SIMETHICONE 40 MG/0.6 ML 30ML ONE (10:17)
[2019-09-17] MEDS: ENOXAPARIN 100MG/ML SYR SUBCUT SCH ×2 (11:00→23:45)
[2019-09-17] MEDS ORDERED: DIAZEPAM 5 MG/ML 2ML CPJ ONE (11:26)
[2019-09-17] MEDS ORDERED: DIAZEPAM 5 MG/ML 2ML CPJ IV PRN (11:26)
[2019-09-17] MEDS: NYSTATIN POWDER 15GM TOP SCH ×3 (13:00→20:26)
[2019-09-17] MEDS: ASCORBIC ACID 500 MG TABLET NG SCH (14:02)
[2019-09-17] MEDS: METOCLOPRAMIDE HCL 10MG/2ML VIAL IV SCH ×3 (14:02→23:42)
[2019-09-17] MEDS: RISPERIDONE 0.5MG TABLET PO SCH ×2 (14:02→21:55)
[2019-09-17] MEDS: ZINC SULFATE 220 MG ( 50 ) CAPSULE NG SCH (14:02)
[2019-09-17] MEDS: SODIUM HYPOCHLORITE 0.125% 473ML SOLUTION TOP SCH (14:04)
[2019-09-17 15:50] LABS: CHLORIDE 111 mEq/L (98-107)
[2019-09-17 15:51] LABS: BASOPHILS % 0.2 % (0.0-2.0); EOSINOPHILS % 0.7 % (0.0-5.0); HEMATOCRIT. 27.7 % (36.0-48.0); HEMOGLOBIN. 8.7 g/dL (12.0-16.0); LYMPHOCYTES % 10.3 % (20.0-50.0); MEAN CORPUSCULAR HEMOGLOBIN 25.7 pg (28.0-32.0); MEAN CORPUSCULAR VOLUME 81.7 fL (81.0-99.0); MEAN PLATELET VOLUME 9.1 fl (7.4-10.4); MONOCYTES % 7.1 % (2.0-8.0); NEUTROPHILS % 81.7 % (40.0-76.0); PLATELET 173 x1000/uL (130-400); RED CELL DISTRIBUTION WIDTH 20.8 % (11.6-14.6)
[2019-09-17 15:56] LABS: INR 1.2; PROTHROMBIN TIME 12.7 sec (9.6-11.0)
[2019-09-17] MEDS: DIGOXIN 125MCG TABLET PO SCH (17:39)
[2019-09-17] MEDS: FLUCONAZOLE 200 MG/100ML BAG 100 ML IV SCH (17:40)
[2019-09-18] VITALS (12 sets, daily range): BP systolic 88–158; BP diastolic 37–94
[2019-09-18] MEDS: METOCLOPRAMIDE HCL 10MG/2ML VIAL IV SCH ×4 (05:49→23:37)
[2019-09-18] MEDS: BLOOD SUGAR DIAGNOSTIC STRIP TEST SCH ×4 (06:50→21:00)
[2019-09-18] MEDS: INSULIN LISPRO 100 UNITS/ML SUBCUT SCH ×4 (07:01→21:28)
[2019-09-18] MEDS: MEROPENEM 1,000 MG in SODIUM CHLORIDE 0.9% 100 ML IV SCH (07:01)
[2019-09-18 07:35] LABS: BASOPHILS % 0.2 % (0.0-2.0); EOSINOPHILS % 0.7 % (0.0-5.0); HEMATOCRIT. 29.9 % (36.0-48.0); HEMOGLOBIN. 9.3 g/dL (12.0-16.0); LYMPHOCYTES % 10.2 % (20.0-50.0); MEAN CORPUSCULAR HEMOGLOBIN 25.9 pg (28.0-32.0); MEAN CORPUSCULAR VOLUME 82.8 fL (81.0-99.0); MEAN PLATELET VOLUME 9.6 fl (7.4-10.4); MONOCYTES % 6.4 % (2.0-8.0); NEUTROPHILS % 82.5 % (40.0-76.0); PLATELET 157 x1000/uL (130-400); RED BLOOD CELL COUNT 3.61 mill/uL (4.2-5.4)
[2019-09-18 07:40] LABS: CHLORIDE 110 mEq/L (98-107)
[2019-09-18] MEDS: SODIUM HYPOCHLORITE 0.125% 473ML SOLUTION TOP SCH (09:00)
[2019-09-18] MEDS: LEVETIRACETAM 500MG PREMIX 100 ML IV SCH ×2 (09:16→21:27)
[2019-09-18] MEDS: ENOXAPARIN 100MG/ML SYR SUBCUT SCH ×2 (09:19→23:38)
[2019-09-18] MEDS: ASCORBIC ACID 500 MG TABLET NG SCH (09:20)
[2019-09-18] MEDS: RISPERIDONE 0.5MG TABLET PO SCH ×2 (09:20→21:27)
[2019-09-18] MEDS: METOPROLOL TARTRATE 25MG TABLET NG SCH ×2 (09:24→21:27)
[2019-09-18] MEDS: CYANOCOBALAMIN 1000MCG/ML VIAL IM SCH (09:24)
[2019-09-18] MEDS: ZINC SULFATE 220 MG ( 50 ) CAPSULE NG SCH (09:24)
[2019-09-18] MEDS: FOLIC ACID 1MG TABLET PO SCH (09:24)
[2019-09-18] MEDS: NYSTATIN POWDER 15GM TOP SCH ×3 (09:25→17:19)
[2019-09-18] MEDS ORDERED: FOLIC ACID 1 MG in SODIUM CHLORIDE 0.9% 500 ML IV ONE (11:00)
[2019-09-18] MEDS: FLUCONAZOLE 200 MG/100ML BAG 100 ML IV SCH (17:16)
[2019-09-18] MEDS: DEXT 5%/0.45% NACL KCL 20MEQ/L 1,000 ML IV SCH ×2 (17:16→19:17)
[2019-09-18] MEDS: LINEZOLID 600 MG PREMIX 300 ML IV SCH (18:10)
[2019-09-18] MEDS: DIGOXIN 125MCG TABLET PO SCH (18:10)
[2019-09-18] MEDS: METRONIDAZOLE 500 MG PREMIX 100 ML IV SCH (22:52)
[2019-09-19] VITALS (13 sets, daily range): BP systolic 98–159; BP diastolic 49–82
[2019-09-19] MEDS: DEXT 5%/0.45% NACL KCL 20MEQ/L 1,000 ML IV SCH ×2 (05:28→17:10)
[2019-09-19] MEDS: METRONIDAZOLE 500 MG PREMIX 100 ML IV SCH ×2 (05:28→14:04)
[2019-09-19] MEDS: METOCLOPRAMIDE HCL 10MG/2ML VIAL IV SCH ×3 (05:52→17:23)
[2019-09-19] MEDS: LINEZOLID 600 MG PREMIX 300 ML IV SCH ×2 (06:00→17:13)
[2019-09-19] MEDS: BLOOD SUGAR DIAGNOSTIC STRIP TEST SCH ×3 (06:21→16:49)
[2019-09-19] MEDS: INSULIN LISPRO 100 UNITS/ML SUBCUT SCH ×3 (06:22→17:26)
[2019-09-19] MEDS: RISPERIDONE 0.5MG TABLET PO SCH (08:40)
[2019-09-19] MEDS: FOLIC ACID 1MG TABLET PO SCH (08:40)
[2019-09-19] MEDS: ZINC SULFATE 220 MG ( 50 ) CAPSULE NG SCH (08:41)
[2019-09-19] MEDS: NYSTATIN POWDER 15GM TOP SCH ×3 (08:41→17:31)
[2019-09-19] MEDS: ASCORBIC ACID 500 MG TABLET NG SCH (08:41)
[2019-09-19] MEDS: METOPROLOL TARTRATE 25MG TABLET NG SCH (08:41)
[2019-09-19] MEDS: CYANOCOBALAMIN 1000MCG/ML VIAL IM SCH (08:43)
[2019-09-19] MEDS: LEVETIRACETAM 500MG PREMIX 100 ML IV SCH (08:58)
[2019-09-19] MEDS: SODIUM HYPOCHLORITE 0.125% 473ML SOLUTION TOP SCH (09:00)
[2019-09-19] MEDS: ENOXAPARIN 100MG/ML SYR SUBCUT SCH (11:51)
[2019-09-19] MEDS: CLONAZEPAM 0.5MG TABLET PO SCH ×2 (12:35→17:26)
[2019-09-19] MEDS ORDERED: CHLORPROMAZINE HCL 25MG/1ML AMP IM NR (14:30)
[2019-09-19] MEDS: FLUCONAZOLE 200 MG/100ML BAG 100 ML IV SCH (17:18)
[2019-09-19] MEDS: DIGOXIN 125MCG TABLET PO SCH (17:25)
[2019-09-19] MEDS ORDERED: DILTIAZEM HCL 5MG/ML 5ML VIAL IV NR (19:15)
[2019-09-19] MEDS ORDERED: LORAZEPAM 2MG/ML CPJ IV NR (20:00)
== END 2019-09-19 21:30 | DRG 853 ==
LOC: ER 13:55 → 7WST 16:13 → ENRESERV 20:10 → 3WST 09-08 16:42
PROVIDERS: ADMIT Internal Medicine; ATTEND Internal Medicine
PROC: 02HV33Z Insertion of Infusion Device into Superior Vena Cava, Percutaneous Approach (ICD-10-PCS; principal; 2019-09-09)
PROC: 30233N1 Transfusion of Nonautologous Red Blood Cells into Peripheral Vein, Percutaneous Approach (ICD-10-PCS; 2019-09-09)
PROC: B548ZZA Ultrasonography of Superior Vena Cava, Guidance (ICD-10-PCS; 2019-09-09)
PROC: 0FT44ZZ Resection of Gallbladder, Percutaneous Endoscopic Approach (ICD-10-PCS; 2019-09-11)
PROC: 0QB10ZZ Excision of Sacrum, Open Approach (ICD-10-PCS; 2019-09-11)
PROC: 8E0W4CZ Robotic Assisted Procedure of Trunk Region, Percutaneous Endoscopic Approach (ICD-10-PCS; 2019-09-11)
PROC: 0DB78ZX Excision of Stomach, Pylorus, Via Natural or Artificial Opening Endoscopic, Diagnostic (ICD-10-PCS; 2019-09-17)
PROC: 0DH63UZ Insertion of Feeding Device into Stomach, Percutaneous Approach (ICD-10-PCS; 2019-09-17)
DX: A41.59 Other Gram-negative sepsis (principal); L89.154 Pressure ulcer of sacral region, stage 4; E43 Unspecified severe protein-calorie malnutrition; G93.41 Metabolic encephalopathy; I63.9 Cerebral infarction, unspecified; N17.0 Acute kidney failure with tubular necrosis; R65.21 Severe sepsis with septic shock; I13.0 Hypertensive heart and chronic kidney disease with heart failure and stage 1 through stage 4 chronic kidney disease, or unspecified chronic kidney disease; E87.1 Hypo-osmolality and hyponatremia; N39.0 Urinary tract infection, site not specified; I50.22 Chronic systolic (congestive) heart failure; I69.354 Hemiplegia and hemiparesis following cerebral infarction affecting left non-dominant side; K81.0 Acute cholecystitis; D64.9 Anemia, unspecified; E11.22 Type 2 diabetes mellitus with diabetic chronic kidney disease; I25.10 Atherosclerotic heart disease of native coronary artery without angina pectoris; I48.91 Unspecified atrial fibrillation; E11.649 Type 2 diabetes mellitus with hypoglycemia without coma; E87.8 Other disorders of electrolyte and fluid balance, not elsewhere classified; E66.01 Morbid (severe) obesity due to excess calories; E87.6 Hypokalemia; K29.70 Gastritis, unspecified, without bleeding; N18.9 Chronic kidney disease, unspecified; R13.10 Dysphagia, unspecified; K81.1 Chronic cholecystitis; Z20.828 Contact with and (suspected) exposure to other viral communicable diseases; Z74.01 Bed confinement status; Z79.899 Other long term (current) drug therapy; Z78.1 Physical restraint status; Z79.4 Long term (current) use of insulin; Z87.01 Personal history of pneumonia (recurrent); Z88.5 Allergy status to narcotic agent; Z68.37 Body mass index [BMI] 37.0-37.9, adult
CPT/HCPCS: 36415; 36573; 70551; 71045; 76937; 80048; 80053; 80162; 80202; 81003; 82270; 82607; 82728; 82746; 82962; 83036; 83540; 83550; 83605; 83880; 84145; 84443; 84484; 85025; 85384; 86850; 86900; 86920; 87070; 87075; 87076; 87077; 87186; 87420; 87635; 87804; 88304; 88305; 88311; 88312; 88313; 92610; 93005; 95816; 99291; C1725; J1100; J1160; J1450; J1650; J1815; J1953; J1956; J2020; J2060; J2185; J2250; J2270; J2405; J2543; J2704; J2710; J2765; J3010; J3230; J3370; J3420; J3480; J3490; J7030; J7050; J7060; J7070; P9016; P9021; Q9967

== ENCOUNTER 2020-01-13 03:21 | Inpatient (IN) | payer MEDICARE, MEDICAID ==
[2020-01-13] VITALS (8 sets, daily range): BP systolic 100–137; BP diastolic 51–72
[~2020-01-13] VITALS: Ht 167.6 cm; Wt 92.1 kg
[~2020-01-13 03:21] MED LIST changes: -AMLO5TAB4 PO; +ASCO500C18 MT; -ASPI-1497 PO; -ATOR10TA PO; +ATOR20TA65 MT; -DICL75TA5 PO; +LIDO700A30 TP; -LISI40TA4 PO; +ONDA4TAB5 MT; -PIOG15TA66 PO; -SITA1TBM7 PO; +ZINC50TA69 PO
[2020-01-13] MEDS ORDERED: SODIUM CHLORIDE 0.9% 1,000 ML IV ONE (03:33)
[2020-01-13 04:02] LABS: BASOPHILS % 0.4 % (0.0-2.0); CHLORIDE 106 mEq/L (98-107); EOSINOPHILS % 0.3 % (0.0-5.0); HEMATOCRIT. 28.3 % (36.0-48.0); HEMOGLOBIN. 8.8 g/dL (12.0-16.0); LYMPHOCYTES % 11.2 % (20.0-50.0); MEAN PLATELET VOLUME 8.4 fl (7.4-10.4); MONOCYTES % 9.3 % (2.0-8.0); NEUTROPHILS % 78.8 % (40.0-76.0); PLATELET 387 x1000/uL (130-400); RED BLOOD CELL COUNT 3.37 mill/uL (4.2-5.4); RED CELL DISTRIBUTION WIDTH 21.4 % (11.6-14.6)
[2020-01-13 04:05] LABS: INR 1.2; PROTHROMBIN TIME 12.4 sec (9.6-11.0)
[2020-01-13 04:06] LABS: ETHANOL BLOOD < 10 mg/dL
[2020-01-13] MEDS ORDERED: LEVETIRACETAM 500MG PREMIX 100 ML IV ONE (05:00)
[2020-01-13] MEDS ORDERED: LORAZEPAM 2MG/ML CPJ IV ONE (05:00)
[2020-01-13] MEDS ORDERED: PIPERACILLIN/TAZOBACTAM 3.375GM/50ML PREMIX IV SCH (05:15)
[2020-01-13] MEDS ORDERED: VANCOMYCIN 1 G PREMIX 200 ML IV SCH (05:15)
[2020-01-13] MEDS ORDERED: ONDANSETRON HCL 4MG/2ML INJ IV PRN (11:30)
[2020-01-13] MEDS ORDERED: LORAZEPAM 2MG/ML CPJ IV PRN (11:30)
[2020-01-13] MEDS ORDERED: DEXTROSE 50% WATER 50ML SYRINGE IV PRN (11:30)
[2020-01-13] MEDS: INSULIN LISPRO 100 UNITS/ML SUBCUT SCH ×3 (12:20→21:00)
[2020-01-13] MEDS: BLOOD SUGAR DIAGNOSTIC STRIP TEST SCH ×3 (12:23→20:52)
[2020-01-13] MEDS: ENOXAPARIN 80MG/0.8ML SYR SUBCUT SCH ×2 (12:23→23:06)
[2020-01-13] MEDS: MEROPENEM 1,000 MG in SODIUM CHLORIDE 0.9% 100 ML IV SCH ×2 (16:14→23:07)
[2020-01-13 17:34] LABS: CLARITY URINE CLOUDY (CLEAR); COLOR URINE YELLOW (YELLOW); KETONES URINE NEGATIVE (NEGATIVE); LEUKOCYTE ESTERASE URINE 3+ (NEGATIVE); NITRITE URINE POSITIVE (NEGATIVE); OCCULT BLOOD URINE 1+ (NEGATIVE); PROTEIN URINE 2+ (NEGATIVE); UROBILINOGEN URINE 0.2 E.U./dL (0.2-1.0)
[2020-01-13 18:06] LABS: *AMPHETAMINES SCREEN URINE NEGATIVE (NEGATIVE); *BARBITURATES SCREEN URINE NEGATIVE (NEGATIVE); *BENZODIAZEPINES SCREEN URINE NEGATIVE (NEGATIVE); *COCAINE SCREEN URINE NEGATIVE (NEGATIVE); OPIATES URINE SCREEN NEGATIVE (NEGATIVE); PHENCYCLIDINE URINE SCREEN NEGATIVE (NEGATIVE)
[2020-01-13 18:07] LABS: CANNABINOID URINE SCREEN NEGATIVE (NEGATIVE); METHADONE URINE SCREEN NEGATIVE (NEGATIVE)
[2020-01-13] MEDS: LEVETIRACETAM 500MG TABLET PO SCH (20:52)
[2020-01-14] VITALS (64 sets, daily range): BP systolic 56–152; BP diastolic 25–110
[2020-01-14] MEDS: MEROPENEM 1,000 MG in SODIUM CHLORIDE 0.9% 100 ML IV SCH ×3 (06:16→22:18)
[2020-01-14] MEDS: BLOOD SUGAR DIAGNOSTIC STRIP TEST SCH ×4 (06:17→20:31)
[2020-01-14 07:08] LABS: CHLORIDE 111 mEq/L (98-107)
[2020-01-14] MEDS: INSULIN LISPRO 100 UNITS/ML SUBCUT SCH ×5 (07:20→20:54)
[2020-01-14 07:58] LABS: BASOPHILS % 0.3 % (0.0-2.0); EOSINOPHILS % 0.7 % (0.0-5.0); HEMATOCRIT. 28.8 % (36.0-48.0); HEMOGLOBIN. 8.9 g/dL (12.0-16.0); LYMPHOCYTES % 10.4 % (20.0-50.0); MEAN CORPUSCULAR HEMOGLOBIN 26.3 pg (28.0-32.0); MEAN CORPUSCULAR VOLUME 84.9 fL (81.0-99.0); MEAN PLATELET VOLUME 8.7 fl (7.4-10.4); MONOCYTES % 10.2 % (2.0-8.0); NEUTROPHILS % 78.4 % (40.0-76.0); PLATELET 366 x1000/uL (130-400); RED CELL DISTRIBUTION WIDTH 21.3 % (11.6-14.6)
[2020-01-14] MEDS: ENOXAPARIN 80MG/0.8ML SYR SUBCUT SCH (08:18)
[2020-01-14] MEDS: LEVETIRACETAM 500MG TABLET PO SCH ×2 (08:52→20:31)
[2020-01-14] MEDS ORDERED: SODIUM CHLORIDE 0.9% 500 ML IV SCH (09:45)
[2020-01-14] MEDS: MIDODRINE HCL 5MG TABLET PO SCH ×3 (10:13→22:18)
[2020-01-14] MEDS ORDERED: PHENYLEPHRINE 50 MG in DEXT 5% WATER 245 ML IV PRN (10:30)
[2020-01-14 10:37] LABS: HEMATOCRIT 23.9 % (36.0-48.0); HEMOGLOBIN 7.1 g/dL (12.0-16.0); MEAN CORPUSCULAR HEMOGLOBIN 25.5 pg (28.0-32.0); MEAN CORPUSCULAR VOLUME 85.2 fL (81.0-99.0); PLATELET 338 x1000/uL (130-400); RED CELL DISTRIBUTION WIDTH 21.5 % (11.6-14.6)
[2020-01-14] MEDS ORDERED: ALBUMIN HUMAN 25GM/500ML (5%) IV SCH (11:15)
[2020-01-14] MEDS: PHENYLEPHRINE 100 MG in DEXT 5% WATER 240 ML IV PRN (11:57)
[2020-01-14] MEDS: PANTOPRAZOLE SODIUM 40 MG/VIAL IV SCH ×2 (11:57→20:31)
[2020-01-14 19:10] LABS: HEMATOCRIT 24.3 % (36.0-48.0); HEMOGLOBIN 7.8 g/dL (12.0-16.0)
[2020-01-14] MEDS ORDERED: MAGNESIUM 1 G PREMIX 100 ML IV SCH (21:00)
[2020-01-14 23:39] LABS: HEMATOCRIT 22.3 % (36.0-48.0); HEMOGLOBIN 7.3 g/dL (12.0-16.0)
[2020-01-15] VITALS (100 sets, daily range): BP systolic 52–163; BP diastolic 24–126
[2020-01-15] MEDS: PHENYLEPHRINE 100 MG in DEXT 5% WATER 240 ML IV PRN (01:01)
[2020-01-15 05:00] LABS: CHLORIDE 114 mEq/L (98-107)
[2020-01-15 05:08] LABS: HEMATOCRIT. 29.8 % (36.0-48.0); HEMOGLOBIN. 9.7 g/dL (12.0-16.0); MEAN CORPUSCULAR HEMOGLOBIN 27.5 pg (28.0-32.0); MEAN CORPUSCULAR VOLUME 84.6 fL (81.0-99.0); MEAN PLATELET VOLUME 8.7 fl (7.4-10.4); PLATELET 291 x1000/uL (130-400); RED BLOOD CELL COUNT 3.52 mill/uL (4.2-5.4); RED CELL DISTRIBUTION WIDTH 17.6 % (11.6-14.6)
[2020-01-15] MEDS: MEROPENEM 1,000 MG in SODIUM CHLORIDE 0.9% 100 ML IV SCH ×3 (05:16→22:40)
[2020-01-15] MEDS: MIDODRINE HCL 5MG TABLET PO SCH ×3 (05:17→22:40)
[2020-01-15 08:04] LABS: HEMATOCRIT 28.6 % (36.0-48.0); HEMOGLOBIN 9.3 g/dL (12.0-16.0)
[2020-01-15] MEDS: INSULIN LISPRO 100 UNITS/ML SUBCUT SCH ×4 (08:20→20:42)
[2020-01-15] MEDS: BLOOD SUGAR DIAGNOSTIC STRIP TEST SCH ×4 (08:33→20:42)
[2020-01-15] MEDS: PANTOPRAZOLE SODIUM 40 MG/VIAL IV SCH ×2 (08:34→20:42)
[2020-01-15] MEDS: LEVETIRACETAM 500MG TABLET PO SCH ×2 (08:34→20:42)
[2020-01-15] MEDS ORDERED: DOPAMINE 400MG/250ML PREMIX 250 ML IV SCH (09:15)
[2020-01-15] MEDS ORDERED: POTASSIUM CHLORIDE INJ 40 MEQ in DEXT 5% WATER 250 ML IV NR (12:00)
[2020-01-15] MEDS ORDERED: MAGNESIUM 1 G PREMIX 100 ML IV NR (12:00)
[2020-01-15 12:56] LABS: HEMATOCRIT 30.6 % (36.0-48.0); HEMOGLOBIN 9.9 g/dL (12.0-16.0)
[2020-01-15 13:23] LABS: NUCLEATED RED BLOOD CELLS 3 /100 WBC; PLATELET ESTIMATE NORMAL
[2020-01-15 16:26] LABS: HEMATOCRIT 29.5 % (36.0-48.0); HEMOGLOBIN 9.7 g/dL (12.0-16.0)
[2020-01-15 21:09] LABS: HEMATOCRIT 30.1 % (36.0-48.0); HEMOGLOBIN 9.8 g/dL (12.0-16.0)
[2020-01-16] VITALS (91 sets, daily range): BP systolic 93–156; BP diastolic 44–86
[2020-01-16 00:27] LABS: HEMATOCRIT 30.7 % (36.0-48.0); HEMOGLOBIN 10.1 g/dL (12.0-16.0)
[2020-01-16 04:17] LABS: BASOPHILS % 0.6 % (0.0-2.0); EOSINOPHILS % 0.5 % (0.0-5.0); HEMATOCRIT. 28.9 % (36.0-48.0); HEMOGLOBIN. 9.4 g/dL (12.0-16.0); LYMPHOCYTES % 14.6 % (20.0-50.0); MEAN CORPUSCULAR HEMOGLOBIN 27.1 pg (28.0-32.0); MEAN CORPUSCULAR VOLUME 83.7 fL (81.0-99.0); MEAN PLATELET VOLUME 8.2 fl (7.4-10.4); MONOCYTES % 14.4 % (2.0-8.0); NEUTROPHILS % 69.9 % (40.0-76.0); PLATELET 271 x1000/uL (130-400); RED BLOOD CELL COUNT 3.45 mill/uL (4.2-5.4); RED CELL DISTRIBUTION WIDTH 18.2 % (11.6-14.6)
[2020-01-16 04:28] LABS: CHLORIDE 114 mEq/L (98-107)
[2020-01-16] MEDS: MEROPENEM 1,000 MG in SODIUM CHLORIDE 0.9% 100 ML IV SCH ×3 (05:09→21:03)
[2020-01-16] MEDS: MIDODRINE HCL 5MG TABLET PO SCH ×3 (05:09→21:03)
[2020-01-16] MEDS: BLOOD SUGAR DIAGNOSTIC STRIP TEST SCH ×3 (07:50→17:57)
[2020-01-16 08:06] LABS: HEMATOCRIT 29.5 % (36.0-48.0); HEMOGLOBIN 9.5 g/dL (12.0-16.0)
[2020-01-16] MEDS: PANTOPRAZOLE SODIUM 40 MG/VIAL IV SCH ×2 (09:29→21:00)
[2020-01-16] MEDS: LEVETIRACETAM 500MG TABLET PO SCH ×2 (09:29→21:00)
[2020-01-16] MEDS: INSULIN LISPRO 100 UNITS/ML SUBCUT SCH ×3 (09:30→18:31)
[2020-01-16] MEDS: SODIUM CHLORIDE 0.45% 1,000 ML IV SCH ×2 (11:15→12:00)
[2020-01-16] MEDS ORDERED: INSULIN LISPRO 100 UNITS/ML SUBCUT SCH (12:00)
[2020-01-16 13:04] LABS: HEMATOCRIT 29.5 % (36.0-48.0); HEMOGLOBIN 9.4 g/dL (12.0-16.0)
[2020-01-16 20:29] LABS: HEMATOCRIT 29.9 % (36.0-48.0); HEMOGLOBIN 9.7 g/dL (12.0-16.0)
[2020-01-16] MEDS: ACETAMINOPHEN 325MG TABLET PO PRN (22:18)
[2020-01-17] VITALS (45 sets, daily range): BP systolic 93–177; BP diastolic 38–90
[2020-01-17] MEDS: BLOOD SUGAR DIAGNOSTIC STRIP TEST SCH ×5 (00:17→23:03)
[2020-01-17] MEDS: INSULIN LISPRO 100 UNITS/ML SUBCUT SCH ×5 (00:25→23:13)
[2020-01-17 01:31] LABS: HEMATOCRIT 28.7 % (36.0-48.0); HEMOGLOBIN 9.3 g/dL (12.0-16.0)
[2020-01-17] MEDS: MIDODRINE HCL 5MG TABLET PO SCH ×3 (06:35→21:22)
[2020-01-17] MEDS: MEROPENEM 1,000 MG in SODIUM CHLORIDE 0.9% 100 ML IV SCH ×3 (06:36→23:28)
[2020-01-17 07:12] LABS: CHLORIDE 114 mEq/L (98-107)
[2020-01-17 07:13] LABS: BASOPHILS % 0.4 % (0.0-2.0); EOSINOPHILS % 0.7 % (0.0-5.0); HEMATOCRIT. 28.3 % (36.0-48.0); HEMOGLOBIN. 9.2 g/dL (12.0-16.0); LYMPHOCYTES % 16.1 % (20.0-50.0); MEAN CORPUSCULAR HEMOGLOBIN 27.6 pg (28.0-32.0); MEAN CORPUSCULAR VOLUME 84.6 fL (81.0-99.0); MEAN PLATELET VOLUME 8.9 fl (7.4-10.4); MONOCYTES % 12.3 % (2.0-8.0); NEUTROPHILS % 70.5 % (40.0-76.0); PLATELET 232 x1000/uL (130-400); RED BLOOD CELL COUNT 3.34 mill/uL (4.2-5.4); RED CELL DISTRIBUTION WIDTH 18.2 % (11.6-14.6)
[2020-01-17] MEDS: LEVETIRACETAM 500MG TABLET PO SCH ×2 (09:05→21:22)
[2020-01-17] MEDS: PANTOPRAZOLE SODIUM 40 MG/VIAL IV SCH ×2 (09:05→21:22)
[2020-01-17] MEDS ORDERED: DIATR MEGLU/DIATRIZOATE SOLN 30ML PO SCH (09:50)
[2020-01-17] MEDS: SODIUM CHLORIDE 0.45% 1,000 ML IV SCH (17:44)
[2020-01-18] VITALS (12 sets, daily range): BP systolic 113–143; BP diastolic 49–86
[2020-01-18] MEDS: SODIUM CHLORIDE 0.45% 1,000 ML IV SCH ×2 (03:40→23:32)
[2020-01-18] MEDS: MEROPENEM 1,000 MG in SODIUM CHLORIDE 0.9% 100 ML IV SCH ×3 (05:27→21:25)
[2020-01-18] MEDS: MIDODRINE HCL 5MG TABLET PO SCH ×3 (05:28→21:28)
[2020-01-18] MEDS: INSULIN LISPRO 100 UNITS/ML SUBCUT SCH ×4 (06:25→23:32)
[2020-01-18] MEDS: BLOOD SUGAR DIAGNOSTIC STRIP TEST SCH ×4 (06:35→23:31)
[2020-01-18 06:56] LABS: CHLORIDE 110 mEq/L (98-107)
[2020-01-18 06:58] LABS: BASOPHILS % 0.3 % (0.0-2.0); EOSINOPHILS % 0.6 % (0.0-5.0); HEMATOCRIT. 26.5 % (36.0-48.0); HEMOGLOBIN. 8.4 g/dL (12.0-16.0); LYMPHOCYTES % 17.1 % (20.0-50.0); MEAN CORPUSCULAR VOLUME 84.8 fL (81.0-99.0); MEAN PLATELET VOLUME 8.5 fl (7.4-10.4); MONOCYTES % 12.2 % (2.0-8.0); NEUTROPHILS % 69.8 % (40.0-76.0); PLATELET 239 x1000/uL (130-400); RED BLOOD CELL COUNT 3.12 mill/uL (4.2-5.4)
[2020-01-18] MEDS: PANTOPRAZOLE SODIUM 40 MG/VIAL IV SCH ×2 (08:56→21:25)
[2020-01-18] MEDS: LEVETIRACETAM 500MG TABLET PO SCH ×2 (08:56→21:25)
[2020-01-18 22:41] LABS: TOTAL IRON BINDING CAPACITY 108 ug/dL (250-450)
[2020-01-19] VITALS (12 sets, daily range): BP systolic 114–157; BP diastolic 56–106
[2020-01-19] MEDS: MIDODRINE HCL 5MG TABLET PO SCH ×3 (05:50→22:44)
[2020-01-19] MEDS: BLOOD SUGAR DIAGNOSTIC STRIP TEST SCH ×3 (05:57→17:00)
[2020-01-19] MEDS: INSULIN LISPRO 100 UNITS/ML SUBCUT SCH ×3 (06:02→17:02)
[2020-01-19 07:11] LABS: BASOPHILS % 0.3 % (0.0-2.0); EOSINOPHILS % 0.9 % (0.0-5.0); HEMATOCRIT. 26.8 % (36.0-48.0); HEMOGLOBIN. 8.6 g/dL (12.0-16.0); LYMPHOCYTES % 14.3 % (20.0-50.0); MEAN CORPUSCULAR HEMOGLOBIN 27.4 pg (28.0-32.0); MEAN CORPUSCULAR VOLUME 85.4 fL (81.0-99.0); MEAN PLATELET VOLUME 8.8 fl (7.4-10.4); NEUTROPHILS % 73.5 % (40.0-76.0); PLATELET 233 x1000/uL (130-400); RED BLOOD CELL COUNT 3.14 mill/uL (4.2-5.4); RED CELL DISTRIBUTION WIDTH 18.2 % (11.6-14.6)
[2020-01-19 07:32] LABS: CHLORIDE 112 mEq/L (98-107)
[2020-01-19 07:34] LABS: FERRITIN 598 ng/mL (10-291)
[2020-01-19 07:49] LABS: VITAMIN B12 SERUM 1603 pg/mL (211-911)
[2020-01-19] MEDS: PANTOPRAZOLE SODIUM 40 MG/VIAL IV SCH ×2 (09:04→22:45)
[2020-01-19] MEDS: LEVETIRACETAM 500MG TABLET PO SCH ×2 (09:04→22:44)
[2020-01-19] MEDS: ACETAMINOPHEN 325MG TABLET PO PRN ×2 (10:59→18:34)
[2020-01-19] MEDS: SODIUM CHLORIDE 0.45% 1,000 ML IV SCH (18:32)
[2020-01-20] VITALS (9 sets, daily range): BP systolic 125–159; BP diastolic 65–96
[2020-01-20] MEDS: BLOOD SUGAR DIAGNOSTIC STRIP TEST SCH ×3 (06:10→11:18)
[2020-01-20] MEDS: MIDODRINE HCL 5MG TABLET PO SCH ×2 (06:10→16:12)
[2020-01-20] MEDS: INSULIN LISPRO 100 UNITS/ML SUBCUT SCH ×3 (06:17→12:24)
[2020-01-20 09:06] LABS: FOLATE HEMATOCRIT 26.6 % (34.0-46.6)
[2020-01-20] MEDS: LEVETIRACETAM 500MG TABLET PO SCH (09:28)
[2020-01-20] MEDS: PANTOPRAZOLE SODIUM 40 MG/VIAL IV SCH (09:28)
[2020-01-20] MEDS: SODIUM CHLORIDE 0.45% 1,000 ML IV SCH (15:15)
[2020-01-21 14:08] LABS: FOLATE HEMOLYSATE > 620.0 ng/mL (Not Estab.); FOLATE RBC > 2331 ng/mL (>498)
== END 2020-01-20 17:55 | DRG 871 ==
LOC: ER 03:21 → 3WST 05:25 → ENRESERV 10:05 → ER 10:56 → CVICU 01-14 12:11 → 3WST 01-17 13:19
PROVIDERS: ADMIT Internal Medicine; ATTEND Internal Medicine
PROC: 30233N1 Transfusion of Nonautologous Red Blood Cells into Peripheral Vein, Percutaneous Approach (ICD-10-PCS; principal; 2020-01-14)
DX: A41.89 Other specified sepsis (principal); L89.154 Pressure ulcer of sacral region, stage 4; L89.894 Pressure ulcer of other site, stage 4; E43 Unspecified severe protein-calorie malnutrition; R57.1 Hypovolemic shock; R57.8 Other shock; I42.9 Cardiomyopathy, unspecified; I50.22 Chronic systolic (congestive) heart failure; N39.0 Urinary tract infection, site not specified; I48.20 Chronic atrial fibrillation, unspecified; N82.8 Other female genital tract fistulae; Z16.12 Extended spectrum beta lactamase (ESBL) resistance; K92.1 Melena; G40.419 Other generalized epilepsy and epileptic syndromes, intractable, without status epilepticus; M46.28 Osteomyelitis of vertebra, sacral and sacrococcygeal region; D64.9 Anemia, unspecified; R47.02 Dysphasia; E78.5 Hyperlipidemia, unspecified; I11.0 Hypertensive heart disease with heart failure; L89.896 Pressure-induced deep tissue damage of other site; I25.10 Atherosclerotic heart disease of native coronary artery without angina pectoris; I27.20 Pulmonary hypertension, unspecified; R13.10 Dysphagia, unspecified; G40.909 Epilepsy, unspecified, not intractable, without status epilepticus; E11.69 Type 2 diabetes mellitus with other specified complication; L89.159 Pressure ulcer of sacral region, unspecified stage; Z93.1 Gastrostomy status; Z74.01 Bed confinement status; Z75.1 Person awaiting admission to adequate facility elsewhere; Z88.6 Allergy status to analgesic agent; Z79.899 Other long term (current) drug therapy; I69.398 Other sequelae of cerebral infarction; Z68.32 Body mass index [BMI] 32.0-32.9, adult
CPT/HCPCS: 36415; 74176; 76856; 78278; 80048; 80053; 80305; 80320; 81003; 82040; 82270; 82542; 82607; 82728; 82747; 82962; 83540; 83550; 83605; 83735; 84134; 84145; 84484; 85014; 85018; 85025; 85027; 86850; 86900; 86920; 87070; 87077; 87186; 87493; 93005; 93306; 93970; 95816; 99285; A9560; C9113; J1265; J1650; J1815; J1953; J2060; J2185; J2370; J2543; J3370; J3475; J3480; J7030; J7050; J7060; P9016; P9021; P9041; Q9963; G0480

== ENCOUNTER 2020-04-26 02:13 | Inpatient (IN) | payer MEDICARE, MEDICAID ==
[~2020-04-26] VITALS: Ht 170.2 cm; Wt 91.0 kg
[~2020-04-26 02:13] MED LIST changes: +ATROPINE SULFATE 1MG/10ML SYR ONE; +CALCIUM CHLORIDE 1GM/10ML SYR IV ONE; +DEXTROSE 50% WATER 50ML SYRINGE IV ONE; +EPINEPHRINE 0.1MG/ML (1:10,000) 10ML SYR ONE; +SODIUM BICARBONATE 8.4% 1 MEQ/ML 50ML SYR IV ONE; +SODIUM CHLORIDE 0.9% 10ML VIAL ONE; +VECURONIUM BROMIDE 10 MG/VIAL IV ONE
[2020-04-26] MEDS ORDERED: ONDANSETRON HCL 4MG/2ML INJ IV STA (02:23)
[2020-04-26] MEDS ORDERED: PIPERACILLIN/TAZ 3.375G PREMIX 50 ML IV ONE ×2 (02:30→13:30)
[2020-04-26] MEDS ORDERED: ETOMIDATE 2MG/ML 10ML VIAL IV ONE (02:30)
[2020-04-26] MEDS ORDERED: VECURONIUM BROMIDE IV ONE (02:30)
[2020-04-26] MEDS ORDERED: MIDAZOLAM HCL 50 MG in DEXTROSE 5% WATER 40 ML IV ONE (02:30)
[2020-04-26] MEDS ORDERED: VANCOMYCIN 1 G PREMIX 200 ML IV ONE (02:30)
[2020-04-26] MEDS ORDERED: MIDAZOLAM HCL 50 MG in DEXTROSE 5% WATER 40 ML IV PRN (02:45)
[2020-04-26] MEDS ORDERED: MIDAZOLAM HCL 100 MG in DEXT 5% WATER 80 ML IV PRN (02:45)
[2020-04-26] MEDS ORDERED: SODIUM CHLORIDE 0.9% 1,000 ML IV ONE (03:15)
[2020-04-26 03:26] LABS: BG BASE EXCESS -13.2 mmol/L (-2.0-2.0); BG CARBOXYHEMOGLOBIN 0.5 % (0.5-1.5); BG DEOXYHEMOGLOBIN 1.8 % (0.0-5.0); BG FRACTION INSPIRED OXYGEN 100; BG HCO3 ACT 13.1 mmol/L (22.0-26.0); BG METHEMOGLOBIN 0.3 % (0.0-1.5); BG OXYGEN SATURATION 98.2 % (92.0-98.5); BG OXYHEMOGLOBIN 97.4 % (94.0-97.0); BG PCO2 31.5 mmHg (35.0-45.0); BG PH 7.236 (7.350-7.450); BG PO2 135.5 mmHg (75.0-100.0); BG SAMPLE SITE LEFT RADIAL; BG TOTAL HEMOGLOBIN 9.9 g/dL (12.0-18.0); BG VENT MODE VENT - AC
[2020-04-26] MEDS ORDERED: NOREPINEPHRINE 8MG/250ML PMX 250 ML IV STA (03:34)
[2020-04-26] MEDS ORDERED: NOREPINEPHRINE 8 MG in DEXTROSE 5% WATER 250 ML IV PRN (03:45)
[2020-04-26 03:51] LABS: HEMATOCRIT. 27.8 % (36.0-48.0); HEMOGLOBIN. 8.1 g/dL (12.0-16.0); MEAN CORPUSCULAR HEMOGLOBIN 25.6 pg (28.0-32.0); MEAN CORPUSCULAR VOLUME 88.2 fL (81.0-99.0); MEAN PLATELET VOLUME 9.3 fl (7.4-10.4); PLATELET 204 x1000/uL (130-400); RED BLOOD CELL COUNT 3.15 mill/uL (4.2-5.4); RED CELL DISTRIBUTION WIDTH 19.6 % (11.6-14.6)
[2020-04-26 03:55] LABS: CHLORIDE 104 mEq/L (98-107)
[2020-04-26 04:03] LABS: INR 1.3; PROTHROMBIN TIME 13.4 sec (9.6-11.0)
[2020-04-26] MEDS ORDERED: DIPHENHYDRAMINE 50MG/ML VIAL IV PRN (04:15)
[2020-04-26] MEDS ORDERED: IPRATROPIUM/ALBUTEROL 0.5-3(2.5)MG/3ML NEB HHN PRN (04:15)
[2020-04-26] MEDS ORDERED: LORAZEPAM 2MG/ML CPJ IV PRN (04:15)
[2020-04-26 05:05] LABS: NUCLEATED RED BLOOD CELLS 3 /100 WBC; PLATELET ESTIMATE NORMAL
[2020-04-26 09:30] LABS: BG BASE EXCESS -14.3 mmol/L (-2.0-2.0); BG HCO3 ACT 11.8 mmol/L (22.0-26.0); BG PCO2 29.4 mmHg (35.0-45.0); BG PH 7.223 (7.350-7.450); BG SAMPLE SITE RIGHT BRACHIAL; BG VENT MODE VENT - AC
[2020-04-26 11:09] LABS: CLARITY URINE TURBID (CLEAR); KETONES URINE NEGATIVE (NEGATIVE); LEUKOCYTE ESTERASE URINE 3+ (NEGATIVE); NITRITE URINE NEGATIVE (NEGATIVE); OCCULT BLOOD URINE 3+ (NEGATIVE); PROTEIN URINE 3+ (NEGATIVE); SPECIFIC GRAVITY URINE 1.023 (1.005-1.030); UROBILINOGEN URINE 0.2 E.U./dL (0.2-1.0)
[2020-04-26 11:10] LABS: COLOR URINE BLOODY (YELLOW)
[2020-04-26] MEDS ORDERED: ONDANSETRON HCL 4MG/2ML INJ IV PRN (12:15)
[2020-04-26] MEDS ORDERED: ACETAMINOPHEN 325MG TABLET PO PRN (12:15)
[2020-04-26] MEDS ORDERED: DEXTROSE 50% WATER 50ML SYRINGE IV PRN (12:30)
[2020-04-26] MEDS: BLOOD SUGAR DIAGNOSTIC STRIP TEST SCH ×3 (13:56→21:21)
[2020-04-26] MEDS: LEVETIRACETAM 500MG PREMIX 100 ML IV SCH ×2 (14:28→21:07)
[2020-04-26] MEDS: INSULIN LISPRO 100 UNITS/ML SUBCUT SCH ×3 (14:28→21:54)
[2020-04-26] MEDS ORDERED: VANCOMYCIN 1 G PREMIX 200 ML IV SCH (15:00)
[2020-04-26 16:39] LABS: CHLORIDE 102 mEq/L (98-107)
[2020-04-26] MEDS ORDERED: SODIUM CHLORIDE 0.9% 500 ML IV ONE (20:45)
[2020-04-26] MEDS ORDERED: PHENYLEPHRINE 50 MG in DEXT 5% WATER 245 ML IV STA ×2 (20:59→21:06)
[2020-04-26] MEDS ORDERED: HEPARIN 5000 UNITS/ML VIAL SUBCUT SCH (21:00)
[2020-04-26] MEDS: PIPERACILLIN/TAZOBACTAM 2.25 G in DEXTROSE 5% WATER 50 ML IV SCH (21:07)
[2020-04-26] MEDS ORDERED: AMIODARONE HCL 50MG/ML 3ML VIAL IV NR (22:00)
[2020-04-26] MEDS ORDERED: AMIODARONE HCL 900 MG in DEXT 5% WATER 500 ML IV PRN (22:15)
[2020-04-27] MEDS: PIPERACILLIN/TAZOBACTAM 2.25 G in DEXTROSE 5% WATER 50 ML IV SCH (02:22)
[2020-04-27 03:35] LABS: HEMOGLOBIN. 7.3 g/dL (12.0-16.0); MEAN CORPUSCULAR VOLUME 92.8 fL (81.0-99.0); MEAN PLATELET VOLUME 10.1 fl (7.4-10.4); PLATELET 113 x1000/uL (130-400); RED BLOOD CELL COUNT 2.91 mill/uL (4.2-5.4); RED CELL DISTRIBUTION WIDTH 20.6 % (11.6-14.6)
[2020-04-27 03:45] LABS: CHLORIDE 93 mEq/L (98-107)
[2020-04-27 03:56] LABS: HDL CHOLESTEROL 12 mg/dL (40-59)
[2020-04-27 04:14] LABS: LDL CHOLESTEROL 7 mg/dL (5-100)
[2020-04-27] MEDS ORDERED: EPINEPHRINE 5 MG in SODIUM CHLORIDE 0.9% 245 ML IV PRN (04:15)
[2020-04-27 04:37] VITALS: BP 100/23
[2020-04-27 04:41] LABS: INR 2.2; PROTHROMBIN TIME 21.9 sec (9.6-11.0)
[2020-04-27 09:11] LABS: PLATELET ESTIMATE SLIGHTLY DECREASED
== END 2020-04-27 04:42 | disposition expired | DRG 871 ==
LOC: ER 02:13 → EDBEDREQ 03:58 → EDBEDREQSVC 03:58 → EDBEDREQTM 03:58 → MICUSO 23:36
PROVIDERS: ADMIT Family Medicine Adult Medicine; ATTEND Family Medicine Adult Medicine
PROC: 5A1945Z Respiratory Ventilation, 24-96 Consecutive Hours (ICD-10-PCS; principal; 2020-04-26)
PROC: 0BH18EZ Insertion of Endotracheal Airway into Trachea, Via Natural or Artificial Opening Endoscopic (ICD-10-PCS; 2020-04-26)
DX: A41.9 Sepsis, unspecified organism (principal); L89.154 Pressure ulcer of sacral region, stage 4; E43 Unspecified severe protein-calorie malnutrition; G93.41 Metabolic encephalopathy; J18.9 Pneumonia, unspecified organism; J96.01 Acute respiratory failure with hypoxia; R65.21 Severe sepsis with septic shock; I63.9 Cerebral infarction, unspecified; E87.1 Hypo-osmolality and hyponatremia; I50.22 Chronic systolic (congestive) heart failure; N39.0 Urinary tract infection, site not specified; D64.9 Anemia, unspecified; E11.65 Type 2 diabetes mellitus with hyperglycemia; E66.9 Obesity, unspecified; G40.909 Epilepsy, unspecified, not intractable, without status epilepticus; I27.20 Pulmonary hypertension, unspecified; I48.91 Unspecified atrial fibrillation; R13.10 Dysphagia, unspecified; Z20.828 Contact with and (suspected) exposure to other viral communicable diseases; Z66 Do not resuscitate; I11.0 Hypertensive heart disease with heart failure; Z86.73 Personal history of transient ischemic attack (TIA), and cerebral infarction without residual deficits; Z93.1 Gastrostomy status; Z68.31 Body mass index [BMI] 31.0-31.9, adult; Z88.5 Allergy status to narcotic agent; Z79.899 Other long term (current) drug therapy
CPT/HCPCS: 36415; 36600; 71045; 80053; 80061; 80162; 81003; 82375; 82805; 82962; 83036; 83605; 83735; 83880; 84145; 84443; 84484; 85025; 86850; 86900; 87077; 87186; 87635; 93005; 94002; 96365; 99291; J0282; J0461; J1644; J1815; J1953; J2250; J2370; J2405; J2543; J3370; J3490; J7030; J7040; J7050; J7060; A4315